=== PATIENT | female | born 1950 | race African-American/Black ===

== ENCOUNTER 2016-12-06 03:04 | Emergency (ER) | payer OTHER ==
[~2016-12-06] VITALS: Ht 167.6 cm; Wt 73.2 kg
[~2016-12-06 03:04] MED LIST: ACTOPLUS MET1 TABLE1 PO; Bactrim,Septra DS 80 PO; COUMADIN,JANTOVE1 MG PO; Coumadin Protocol PO; DILAUDID2 MG PO; FEOSOL325 MG PO; LIPITOR20 MG PO; Levothroid,Synthroid PO; Prevacid PO; SENOKOT S,PE1 TABLET PO; SYNTHROID112 MCG PO; Tylenol Regular Stre PO; VICODIN,LORT1 TABLET PO; VITAMIN D5000 INTUN PO; Vicodin,Norco 5/325 PO; Vitamin D, Drisdol PO
[2016-12-06 04:22] LABS: HEMATOCRIT 40.1 % (36.0-46.0); MCH 30.6 PG (29.0-34.0); MCHC 34.2 G/DL (30.0-36.0); MCV 89.5 FL (83-99); MEAN PLAT.VOLUME 10.6 uM^3 (9.5-12.4); PLATELET COUNT 235 K/uL (156-360); RBC DIS.WIDTH-SD 41.6 % (39-53); RED BLOOD COUNT 4.48 M/uL (3.80-5.20); WHITE BLOOD COUNT 7.3 K/uL (4.1-10.2)
[2016-12-06 04:23] LABS: CHLORIDE 106 mEq/L (99-109); POTASSIUM 4.7 mEq/L (3.7-5.4); SODIUM 136 mEq/L (136-147)
[2016-12-06 04:26] LABS: GLUCOSE 229 mg/dL (70-99)
[2016-12-06 04:27] LABS: ANION GAP 10 MEQ/L (2-14); TOTAL BILIRUBIN 0.3 mg/dL (0.0-1.0)
[2016-12-06 04:29] LABS: ALKALINE PHOSPHATASE 64 IU/L (3-129); GFR ESTIMATE (CALCULATED) > 59 mL/min/
[2016-12-06 04:30] LABS: UREA NITROGEN (BUN) 22 mg/dL (9-23)
[2016-12-06 04:33] LABS: LIPASE 62 U/L (1.0-51.0)
[2016-12-06 04:39] LABS: TROP-I INTERPRETATION NEGATIVE; TROPONIN-I < 0.01 ng/mL (0.0-0.30)
[2016-12-06] MEDS ORDERED: MECLIZINE HCL25 MG PO (05:30)
[2016-12-06 06:29] LABS: ADD MIUA? NO; BILIRUBIN NEGATIVE; BLOOD NEGATIVE; COLOR YELLOW ((YELLOW)); GLUCOSE (STRIP) 100; KETONES NEGATIVE; LEUKOCYTES NEGATIVE; NITRITE NEGATIVE; PH, URINE 5.5 (5-8); PROTEIN (STRIP) NEGATIVE; SPECIFIC GRAVITY 1.023 (1.000-1.030); UCUL ADDED? NO
[2016-12-06 06:59] LABS: TROP-I INTERPRETATION NEGATIVE; TROPONIN-I < 0.01 ng/mL (0.0-0.30)
[2016-12-06 07:35] VITALS: BP 108/67
== END 2016-12-06 08:04 | disposition home or self-care (01) ==
LOC: EME 03:04
PROVIDERS: Emergency Medicine
DX: R42 Dizziness and giddiness (principal); E11.65 Type 2 diabetes mellitus with hyperglycemia; Z79.4 Long term (current) use of insulin; Z87.891 Personal history of nicotine dependence; Z88.6 Allergy status to analgesic agent
CPT/HCPCS: 70450; 71020; 80053; 81003; 83690; 84484; 85027; 93005; 99281; 99285; J7030